=== PATIENT | female | born 1980 | race Asian ===

== ENCOUNTER 2017-04-29 19:08 | Emergency (ER) | payer OTHER ==
[~2017-04-29] VITALS: Ht 170.2 cm; Wt 77.6 kg
[2017-04-29 20:47] LABS: PLATELET COUNT 287 K/uL (152-353)
== END 2017-04-29 21:34 | disposition home or self-care (01) ==
LOC: ED 19:08
DX: J11.1 Influenza due to unidentified influenza virus with other respiratory manifestations (principal)
CPT/HCPCS: 36415; 85027; 87081; 87804; 87880; 99283

== ENCOUNTER 2021-11-27 05:50 | Emergency (ER) | payer OTHER ==
[~2021-11-27] VITALS: Ht 170.2 cm; Wt 83.5 kg
[2021-11-27 06:00] VITALS: TEMP 98.1
[2021-11-27 07:01] LABS: PLATELET COUNT 391 K/uL (152-353)
[2021-11-27 07:10] LABS: POTASSIUM 3.5 mmol/L (3.6-5.2)
[2021-11-27 08:09] LABS: PARTIAL THROMBOPLASTIN TIME 27.5 SECONDS (24.5-33.6)
[2021-11-27 08:34] VITALS: BP 129/72
== END 2021-11-27 08:35 | disposition home or self-care (01) ==
LOC: ED 05:50
PROVIDERS: Family Medicine
DX: F41.0 Panic disorder [episodic paroxysmal anxiety] (principal); I10 Essential (primary) hypertension; R42 Dizziness and giddiness
CPT/HCPCS: 80053; 80307; 81002; 82550; 84484; 85027; 85610; 85730; 93005; 99283

== ENCOUNTER 2021-12-24 14:42 | Outpatient (CLI) | payer OTHER | END 2021-12-24 19:31 | disposition home or self-care (01) | LOC: MAMMO 14:42 | PROVIDERS: ATTEND Internal Medicine | DX: Z12.31 Encounter for screening mammogram for malignant neoplasm of breast (principal) ==

== ENCOUNTER 2022-06-13 16:35 | Emergency (ER) | payer OTHER ==
[~2022-06-13] VITALS: Ht 170.2 cm; Wt 84.4 kg
[2022-06-13 16:51] VITALS: BP 106/64; TEMP 97.2
== END 2022-06-13 18:40 | disposition home or self-care (01) ==
LOC: ED 16:35
DX: B34.9 Viral infection, unspecified (principal); K52.89 Other specified noninfective gastroenteritis and colitis
CPT/HCPCS: 96372; 99283; J1885

== ENCOUNTER 2022-06-14 20:48 | Emergency (ER) | payer OTHER ==
[~2022-06-14] VITALS: Ht 170.2 cm; Wt 83.5 kg
[2022-06-14 21:49] LABS: PLATELET COUNT 272 K/uL (152-353)
[2022-06-14 22:01] LABS: POTASSIUM 3.8 mmol/L (3.6-5.2)
[2022-06-14 23:00] VITALS: BP 111/63; TEMP 98.2
== END 2022-06-14 23:00 | disposition home or self-care (01) ==
LOC: ED 20:48
PROVIDERS: Family Medicine
DX: U07.1 COVID-19 (principal); J06.9 Acute upper respiratory infection, unspecified
CPT/HCPCS: 36415; 80053; 85027; 87502; 87635; 99283; U0001

== ENCOUNTER 2022-06-17 14:01 | Emergency (ER) | payer OTHER ==
[~2022-06-17] VITALS: Ht 170.2 cm; Wt 79.4 kg
[2022-06-17 14:05] VITALS: BP 117/77; TEMP 97.7
== END 2022-06-17 14:40 | disposition home or self-care (01) ==
LOC: ED 14:01
DX: U07.1 COVID-19 (principal)
CPT/HCPCS: 99282